=== PATIENT | male | born 1995 | race Caucasian/White ===

== ENCOUNTER → 2021-01-16 09:34 | Outpatient (CLI) | payer OTHER, SELFPAY ==
[2021-01-16 17:52] LABS: SARS-CoV-2 RNA PCR Negative
== END ==
PROVIDERS: Visit Provider Otolaryngology
DX: Z01.812 Encounter for preprocedural laboratory examination (principal); Z20.822 Contact with and (suspected) exposure to COVID-19
CPT/HCPCS: C9803; U0003; U0005

== ENCOUNTER 2021-01-19 00:44 | Day surgery (SDC) | payer OTHER, SELFPAY ==
[2021-01-15 17:13] VITALS: BMI 33.2
--- NOTE | 2021-01-18 12:57 | PM.IMHP ---
H&P: HPI History of Present Illness Date/Time: 01/18/21 12:57 patient presents for planned surgical procedures. No changes in symptoms or medical history. Chief Complaint: Nasal obstruction nasal congestion septal deviation inferior turbinate hypertrophy Review of Systems Constitutional: Constitutional: Denies fatigue, Denies fever(s) and Denies lethargy Eyes: Eyes: Denies blurry vision and Denies change in vision ENT: Reports as per HPI Cardiovascular: Cardiovascular: Denies chest pain Respiratory: Respiratory: Denies cough Endocrine: Endocrine: Denies fatigue Hematologic/Lymphatic: Hematologic/Lymphatic: Denies easy bleeding, Denies easy bruising and Denies lymphadenopathy Allergic/Immunologic: Allergic/Immunologic: Denies seasonal rhinorrhea [facility] Social History Social History Years smoked: 0.5 Smoking status: Light tobacco smoker Tobacco type: cigarettes and e-cigarettes/vaping Second hand tobacco smoke exposure: No Additional smoking assessment comments: vapes w/ nicotine sometimes currently Alcohol intake: current Drinks per week: 2 Alcohol use details: beer; socially Substance use: never Substance use type: does not use Spiritual care concerns: No Meds Home Medications and Allergies Home Medications Medication Instructions Recorded Confirmed Type multivitamin [Daily Multivitamin] 1 tablet PO DAILY 01/15/21 01/15/21 History omega 1-efy-qnf-fish oil [Fish Oil] 1 cap PO DAILY 01/15/21 01/15/21 History potassium chloride [K+ Potassium] 20 meq PO DAILY 01/15/21 01/15/21 History Allergies Allergy/AdvReac Type Severity Reaction Status Date / Time Penicillins Allergy Unknown unknown Verified 01/15/21 17:09 Exam Const: General: cooperative, healthy appearing, comfortable, well developed and alert HENMT: Head: normal to inspection, normocephalic and atraumatic Ears: hearing grossly normal bilaterally, external ears normal, TM's normal bilaterally and EAC's normal General nose exam: Normal external nose present, Normal nares present, No nasal polyps present and Other nasal findings present ( septal deviation inferior turbinate hypertrophy) Face and sinus: normal facial exam Mouth: Yes Normal oral and palatal mucosa present, Yes lip normal, Yes tongue normal, Yes oropharynx normal and Yes moist mucous membranes Teeth and gingiva: dentition normal and gingiva normal Throat: posterior oropharynx normal, tonsils normal and uvula midline Eyes: General: appearance normal, both eyes and all related structures Periorbital: periorbital findings normal Eyelids: eyelids normal Conjunctivae: conjunctivae normal Sclera: sclerae normal Neck: Neck: normal visual inspection, full ROM and no lymphadenopathy Thyroid: thyroid normal Lymphatic: no lymphadenopathy noted Resp: Effort & Inspection: normal respiratory effort and able to speak in complete sentences Cardio: Jugular venous distension: no JVD Neuro: Cranial nerves: Yes CN's II-XII intact bilaterally Assessment and Plan Assessment and plan (1) Deviated nasal septum: Code(s): J34.2 - Deviated nasal septum Status: Acute Assessment and Plan: Plan is for the OR for endoscopic assisted septoplasty and inferior turbinate reduction total operative time 1:00 a.m.. Risks were discussed including blindness damage to vision CSF leak brain damage infection the need for further procedures and postoperative bleeding as well as splints being placed in the need for postoperative antibiotics. Patient voiced understanding and agreed. (2) Hypertrophy of both inferior nasal turbinates: Code(s): J34.3 - Hypertrophy of nasal turbinates Status: Acute (3) Nasal obstruction: Code(s): J34.89 - Other specified disorders of nose and nasal sinuses Status: Acute
[2021-01-19] VITALS (7 sets, daily range): BP systolic 114–154; BP diastolic 60–80; PULSE 47–69; RESP 12–18; TEMP 36.2–36.7; O2SAT 98–100
--- NOTE | 2021-01-19 06:43 | P.PNAN_ITS ---
Anes - Initial Pre Proc Eval Procedure: Operation Date: 01/19/21 07:30 Proposed Procedures p Septoplasty, - Kei Glaser MD s Bilateral Inferior Turbinectomy - Kei Glaser MD Date/Time: 01/19/21 06:43 Surgeon: Kei Glaser MD Pre Op Diagnosis: septal deviation, turbinate hypertrophy Patient Data Age: 25 Gender: M Height: 1.96 m Weight: 127.2 kg Allergies Allergy/AdvReac Type Severity Reaction Status Date / Time Penicillins Allergy Unknown unknown Verified 01/15/21 17:09 Home Medications Medication Instructions Recorded Confirmed Type multivitamin [Daily Multivitamin] 1 tablet PO DAILY 01/15/21 01/15/21 History omega 3-sdj-twr-fish oil [Fish Oil] 1 cap PO DAILY 01/15/21 01/15/21 History potassium chloride [K+ Potassium] 20 meq PO DAILY 01/15/21 01/15/21 History Patient hx anesthesia problems: none Family hx anesthesia problems: none REPLACED BY [facility] Past Medical History Medical History (Updated 01/19/21 @ 06:43 by Dylan Solomon MD) Obesity Social History Social History Years smoked: 0.5 Smoking status: Light tobacco smoker Tobacco type: cigarettes and e-cigarettes/vaping Second hand tobacco smoke exposure: No Additional smoking assessment comments: vapes w/ nicotine sometimes currently Alcohol intake: current Drinks per week: 2 Alcohol use details: beer; socially Substance use: never Substance use type: does not use Living arrangements: with roommate(s) Spiritual care concerns: No Anes - Eval Final PreProcedure Day of Procedure 01/19/21 06:43 Patient weight: obese Heart: regular rate and rhythm Lungs: clear to auscultation Airway: Mallampati scale class 1 Neurological: alert and oriented Last oral intake: >/= 8 hours ASA classification: II Emergent: no Anesthetic plan: proceed Anesthesia type and monitoring: general ETT and standard monitoring Informed Consent: The patient's anesthetic plan and its attendant risks and benefits were discussed with the patient/family/POA. Questions were solicited and answers provided to the satisfaction of the patient/family/POA.
[2021-01-19] MEDS: LACTATED RINGERS 1,000 ML 30 ML IV CONT (06:50)
[2021-01-19] MEDS: ACETAMINOPHEN 500 MG TABLET 1000 MG PO (06:53)
--- NOTE | 2021-01-19 07:09 | WPDHPUPDATE1 ---
History and Physical Update Update Date/Time: 01/19/21 07:09 History and Physical has been reviewed, including an updated exam of the patient. There are NO changes in the patient's condition. Risks, benefits, and alternatives have been discussed and questions answered. Patient agrees to proceed with procedure.
[2021-01-19] MEDS: ceFAZolin 3 GM/D5W 100 ML 100 ML IVPB (07:23)
[2021-01-19] MEDS: OXYMETAZOLINE HCL 0.05% NAS 15 ML BTL (*BKC) 1 SPRAY NASAL (07:40)
[2021-01-19] MEDS: LIDO 1%/EPINEPHRINE/PF 1:200,000 30 ML VIAL XX (07:41)
--- NOTE | 2021-01-19 08:52 | W.PM.PROC2 ---
Procedure Note - Detailed Date of Procedure 01/19/21 Pre-op Diagnosis septal deviation, turbinate hypertrophy Post-op Diagnosis same Procedure Performed 1. Endoscopic assisted septoplasty 2. Inferior turbinate submucosal resection with outfracture Surgeon Kei Glaser MD [employer] none Anesthesia general Indications see above Findings significant inferior turbinate hypertrophy large bone component, right significant septal deviation all corrected Description of Procedure the patient was correctly identified and consent was verified in the preoperative holding area. The patient was then brought to the operating room and a time-out was performed. General anesthesia was induced and endotracheal tube was secured the patient's airway and taped to the left lower lip. Afrin-soaked pledgets were placed and allowed to sit for 5 minutes and then removed. The patient was then prepped and draped for the aforementioned procedures. The 0 degree endoscope was utilized to perform the entire procedure. 15 cc of 1% lidocaine with 1 100,000 parts epinephrine was injected in the sub mucosal plane on the bilateral nasal septum as well as anterior portions of the inferior turbinates. Fifteen blade was utilized to perform Mcqueeney type incision on the anterior left nasal septum. A 7 Ivorian suction was utilized to dissect a mucoperichondrial flap on the left. Caudal was then utilized to cross to the right side. Right-sided mucoperichondrial flap was then elevated. Deviated nasal septum was removed with combination of endoscopic scissors Lester Singer forceps and Gloria forceps as well as osteotome. The septum was very straight following the procedure. This was closed with 3 interrupted 5 0 fast gut sutures anteriorly on the left. The left inferior turbinate was then entered anteriorly and debrided in the submucosal plane using microdebrider with 2 mm inferior turbinate blade. It was then outfractured using a [place] elevator. Redundant mulberry tip was then debrided with microdebrider and cauterized with suction Bovie electrocautery at a setting of 15 the exact same procedure was performed on the right inferior turbinate. Bleeding was minimal and hemostasis without excellent following the procedure. Hanna splints were then placed after the nasal passages were suctioned bilaterally, the Hanna splints were then sutured anteriorly using a 3-0 nylon suture. Patient was cleaned. Total blood loss approximately 20 cc. I performed all dictated portions of the procedure. Care the patient was turned over to Anesthesiology. There were no immediate complications. Estimated Blood Loss -25.0 Drains No Packing No Pathology yes Complications No immediate complications Condition stable Disposition PACU
--- NOTE | 2021-01-19 10:13 | SUR.PHASEII ---
Drip pad changed a second time before patient left.
== END 2021-01-19 10:08 | disposition home or self-care (01) ==
PROVIDERS: Visit Provider Otolaryngology
PROC: (CPT 30520; principal; 2021-01-19 07:30)
PROC: (CPT 30140; 2021-01-19 07:30)
DX: J34.3 Hypertrophy of nasal turbinates (principal); J34.2 Deviated nasal septum; F17.210 Nicotine dependence, cigarettes, uncomplicated; F17.290 Nicotine dependence, other tobacco product, uncomplicated; E66.9 Obesity, unspecified; Z68.33 Body mass index [BMI] 33.0-33.9, adult
CPT/HCPCS: 30140; 30520; A9270; J0330; J0690; J1100; J2250; J2405; J2704; J3010; J7120